=== PATIENT | male | born 1995 | race Two or more races ===

== ENCOUNTER 2021-04-03 08:38 | Emergency (ER) | payer OTHER ==
[~2021-04-03] VITALS: Ht 170.2 cm; Wt 70.3 kg
[2021-04-03 08:47] VITALS: BP 134/81
[2021-04-03] MEDS ORDERED: CEFTRIAXONE 500 MG VIAL ONE (09:08)
[2021-04-03] MEDS ORDERED: AMOX500C2 PO (09:08)
[2021-04-03] MEDS ORDERED: LIDOCAINE /MPF 1% VIAL 5 ML VIAL ONE (09:08)
[2021-04-03] MEDS: CEFTRIAXONE 500 MG VIAL IM ONE (09:16)
== END 2021-04-03 09:19 | disposition home or self-care (01) ==
LOC: ER 08:44
DX: J02.0 Streptococcal pharyngitis (principal); R59.0 Localized enlarged lymph nodes
CPT/HCPCS: J0696; J3490